=== PATIENT | male | born 1955 | race Caucasian/White ===

== ENCOUNTER → 2018-01-01 | Outpatient (CLI) | payer BC ==
[2018-01-01 11:54] LABS: HCT 41.2 % (39.0-53.0); HGB 13.4 gm/dL (13.0-17.5); MCH 29.7 pg (25.0-35.0); MCHC 32.6 g/dL (31.0-37.0); MCV 91.2 fL (80.0-100.0); Mean Platelet Volume 9.1; Platelet Count 122 k/uL (150-450); RBC 4.52 m/uL (4.30-5.90); RDW 13.7 % (11.5-15.5); WBC 5.3 k/uL (3.8-10.6)
[2018-01-01 12:03] LABS: ALT 40 U/L (21-72); AST 21 U/L (17-59); Albumin 4.1 g/dL (3.5-5.0); Alkaline Phosphatase 51 U/L (38-126); Anion Gap 13 mmol/L; Blood Urea Nitrogen 16 mg/dL (9-20); Calcium 9.2 mg/dL (8.4-10.2); Carbon Dioxide 26 mmol/L (22-30); Chloride 105 mmol/L (98-107); Glucose 106 mg/dL (74-99); Potassium 4.7 mmol/L (3.5-5.1); Sodium 144 mmol/L (137-145); Total Bilirubin 0.4 mg/dL (0.2-1.3); Total Protein 6.1 g/dL (6.3-8.2)
[2018-01-01 12:15] LABS: INR 1.1 (<1.2); Partial Thromboplastin Time 24.1 sec (22.0-30.0); Prothrombin Time 10.8 sec (9.0-12.0)
[2018-01-01 12:24] LABS: Appearance,Urine Clear (Clear); Bilirubin,Urine Negative (Negative); Blood,Urine Negative (Negative); Color,Urine Yellow; Glucose,Urine (UA) Negative (Negative); Ketones,Urine Negative (Negative); Leukocyte Esterase,Urine Negative (Negative); Nitrite,Urine Negative (Negative); PH, Urine 5.5 (5.0-8.0); Protein,Urine Negative (Negative); Specific Gravity,Urine 1.016 (1.001-1.035); Urobilinogen,Urine <2.0 mg/dL (<2.0)
== END | disposition home or self-care (01) ==
LOC: LABPAT 11:22
PROVIDERS: ATTEND Orthopaedic Surgery
DX: Z01.812 Encounter for preprocedural laboratory examination (principal)
CPT/HCPCS: 80053; 81003; 85027; 85610; 85730; 87070

== ENCOUNTER 2018-01-08 05:38 | Inpatient (IN) | payer BC ==
[2018-01-04 15:11] VITALS: BMI 25.9
[~2018-01-08 05:38] MED LIST: ACETAMINOPHEN TAB 500 MG TAB PO ONE; LACTATED RINGERS 1,000 ML IV SCH; LIDOCAINE 1% 20 ML VIAL (10MG/ML) FOR IV START INTRADERMA PRN; MELOXICAM 7.5 MG TAB PO ONE; MORPHINE SULFATE 4 MG/0.8 ML SYRINGE (INJ) IV PRN; ONDANSETRON ODT 4 MG TAB PO ONE; TRANEXAMIC ACID 1,000 MG in SODIUM CHLORIDE 0.9% 50 ML IVPB ONE; ceFAZolin IN SWFI 2 GM/20 ML SYRINGE IVP ONE
[2018-01-08] MEDS ORDERED: ROPIVACAINE 246.25 MG, EPINEPHrine 0.5 MG, KETOROLAC 30 MG, cloNIDine HCL/PF 80 MCG, WA... MISCELLANE ONE ×5 (05:43)
[2018-01-08] MEDS ORDERED: ONDANSETRON 4 MG/2 ML VIAL ONE (06:11)
[2018-01-08] MEDS ORDERED: DEXAMETHASONE SOD PHOS (MDV) 100 MG/10 ML VIAL IV ONE (06:50)
[2018-01-08] MEDS ORDERED: ONDANSETRON 4 MG/2 ML VIAL IVP ONE (06:50)
[2018-01-08] MEDS ORDERED: SCOPOLAMINE 1.5MG/72HR PATCH TRANSDERM ONE (06:50)
[2018-01-08] MEDS ORDERED: DIAZEPAM 5 MG TAB PO PRN ×2 (07:23)
[2018-01-08] MEDS ORDERED: hydrOXYzine PAMOATE 25 MG CAP PO PRN (07:23)
[2018-01-08] MEDS ORDERED: MAGNESIUM HYDROXIDE 2,400 MG/10 ML CUP PO PRN (07:23)
[2018-01-08] MEDS ORDERED: MORPHINE SULFATE 4 MG/0.8 ML SYRINGE (INJ) IVP PRN ×3 (07:23)
[2018-01-08] MEDS ORDERED: ONDANSETRON 4 MG/2 ML VIAL IVP PRN (07:23)
[2018-01-08] MEDS ORDERED: HYDROcodone/APAP 5-325MG 1 EACH TAB PO PRN (07:23)
[2018-01-08] MEDS ORDERED: NALOXONE 0.4 MG/ML 1 ML VIAL IV PRN (07:23)
[2018-01-08] MEDS ORDERED: fentaNYL (PF) 50 MCG/ML 2 ML AMP ONE (07:26)
[2018-01-08] MEDS ORDERED: HEPARIN SODIUM,PORCINE 10,000 UNIT/ML 1 ML VIAL ONE (07:26)
[2018-01-08] MEDS ORDERED: MIDAZOLAM 2 MG/2 ML VIAL ONE (07:26)
[2018-01-08] MEDS ORDERED: SODIUM CHLORIDE 0.9% 100 ML BAG ONE (07:26)
[2018-01-08] MEDS ORDERED: TRANEXAMIC ACID 1,000 MG/10 ML VIAL ONE (07:26)
[2018-01-08] MEDS ORDERED: LACTATED RINGERS 1,000 ML BAG IV ONE (07:26)
[2018-01-08] MEDS ORDERED: ceFAZolin 3,000 MG in SODIUM CHLORIDE 0.9% IRRIGATIO 3,000 ML IRRIGATION ONE (08:03)
[2018-01-08] MEDS ORDERED: LACTATED RINGERS 1,000 ML IV ONE (08:46)
--- NOTE | 2018-01-08 08:58 | P.OP ---
Date of Procedure: 01/08/18 Preoperative Diagnosis: Severe osteoarthritis left hip Postoperative Diagnosis: Severe osteoarthritis left hip Procedure(s) Performed: Left total hip arthroplasty with a direct anterior approach Implants: Mathias and nephew Polarstem size 3 standard [employer]ias [employer]hew R3, 3 hole acetabular shell, 52 mm [employer] reflection 6.5 mm cancellus screw, 20 mm 2 [employer] R3, XLPE 20 acetabular liner [employer]hew Oxinium femoral head 36 m, +0 All components were press-fit. The articulation is Oxinium on polyethylene. Anesthesia: spinal Surgeon: Jose Angel Samaniego Tool Room Gear Machine Operator #1: Kaitlin Sanchez Estimated Blood Loss (ml): 200 (65 mL returned with Cell Saver) Pathology: other (Femoral head) Condition: stable Disposition: PACU Indications for Procedure: After failure of conservative treatment we discussed the surgical and nonsurgical treatment options at length. Patient wishes to proceed with a total hip arthroplasty with a direct anterior approach. Complications specific to this procedure were discussed at length, including but not limited to infection, leg length discrepancy, dislocation, and nerve injury. Patient is aware of all these complications and informed consent was obtained Operative Findings: The operative findings are consistent with severe osteoarthritis of the left hip Description of Procedure: Patient was seen and evaluated in the preoperative area, consent was reviewed, and the surgical site was marked with a skin marker. Patient was then brought to the operating room and given prophylactic antibiotics intravenously. 1 g of Tranexamic acid was also given. A spinal anesthetic was administered by the anesthesia department. The patient was then placed on the [place] table with the bony prominences well-padded. The hip area was then prepped and draped in usual sterile fashion. A universal timeout was then performed, which confirmed the patient's name, surgical site, ALLERGIES, and procedure being performed. Next the incision site was located at 1 cm distal and 1 cm lateral to the anterior superior iliac spine. The skin and subcutaneous tissues were sharply incised. Incision was carefully dissected down to the fascia overlying the tensor fascia rogelio muscle. This fascia was then incised in line with the incision. Next, using blunt finger dissection, the tensor fascia rogelio muscle was dissected off its investing fascia. The muscle was then carefully retracted laterally with a cobra retractor over the lateral neck of the femur. Next, the circumflex vessels were identified and cauterized using the AquaMantis device. The anterior hip capsule was then exposed. The capsule was then opened and an inverted T fashion. Cobra retractors were then placed intracapsularly. The proximal femur was then visualized. The femoral neck was then osteotomized appropriate level above the lesser trochanter. Small amount of traction was placed with the [place] table. A small wedge of bone was then removed from the remaining femoral head. Next, using a corkscrew femoral head was easily removed from the acetabulum. On gross visual inspection, the femoral head had complete loss of articular cartilage in multiple periarticular osteophytes. Attention was then turned to the acetabulum. the acetabulum was exposed and any remaining labrum was excised. Sequential reaming of the acetabulum was performed using fluoroscopic guidance. When the appropriate size was reached, a trial was then placed. The position and fit of the trial was checked with fluoroscopy. The trial was then removed. Then, using fluoroscopic guidance, the final implant was impacted at 20 of anteversion and 40 of abduction, and fully seated in the acetabulum. 2 screws were then placed in the acetabulum. Again fluoroscopy was used to check position of the screws. Next, the liner was then impacted, with a 20 elevated liner located in the anterior superior quadrant. Component locking was confirmed. Attention was then directed to the femur. With the aid of the [place] table, the femur was externally rotated to approximately 130, extended, and abducted under the opposite leg. A side hook was then placed under the proximal femur, and the side hook elevator was used to elevate the proximal femur. Retractors were then placed. A capsular release was performed, as well as a release of the conjoined tendon, which afforded excellent visualization of the proximal femur. Next, a box osteotome was used to lateralize the proximal femur. A insole tack puller hand was then used to locate the femoral canal. Sequential broaching was then performed with appropriate size which afforded excellent fixation in the proximal femur. A trial was then placed with appropriate head and neck, and the hip was gently reduced with the aid of the [place] table. Fluoroscopy was then used to check position of the components, as well as to ensure equal leg lengths. The hip was then gently dislocated and the trials were then removed. Final implants were then impacted and the hip was again reduced. Final fluoroscopic x-rays confirmed that the components were in anatomic position, as well as equal leg lengths. The hip was also taken through range of motion, and found to be stable. The hip was then copiously irrigated with antibiotic solution with pulsatile lavage. The hip was then irrigated with Irrisept solution. The soft tissues were then injected with a ropivacaine solution, which consisted of 246.25 mg of ropivacaine, 0.5 mg of epinephrine, 30 mg of Toradol, 80 g of clonidine, and 48.45 mL of sterile water, for a total of 100 mL of fluid injected. A second dose of 1 g of Tranexamic acid was also given. the fascia was then closed with 2-0 strata fix suture. The subcutaneous tissue was closed with 3-0 Vicryl. The subcuticular tissue was closed with 3-0 strata fix suture. The skin was then closed with Dermabond glue and a sterile silver dressing. The patient was then transferred to the recovery room in stable condition. The membership assistant ROSHAN Tse was required due to the complexity of surgery, and the need for skilled surgical dental assistant for positioning, draping, exposure, retraction, and closure of the wound.
--- NOTE | 2018-01-08 09:07 | FL ---
EXAMINATION TYPE: FL guidance operating room, XR Hip Limited LT DATE OF EXAM: 01/08/2018 CLINICAL HISTORY: Left hip replacement surgery. TECHNIQUE: Fluoroscopy. Limited intraoperative views left hip. COMPARISON: None. FINDINGS: Fluoroscopic guidance was provided during left hip replacement procedure performed by Dr. Samaniego. A total of 33 seconds of fluoroscopic time was utilized during the procedure and 2 spot in traoperative images are acquired. Intraoperative images obtained show metallic hip prosthesis left hip satisfactory in position on fron yajaira projection. Metallic hardware right hip is partially imaged. IMPRESSION: As Above.
--- NOTE | 2018-01-08 09:33 | XR ---
EXAMINATION TYPE: XR Hip Limited LT DATE OF EXAM: 01/08/2018 CLINICAL HISTORY: Left hip pain and osteoarthritis. TECHNIQUE: Single AP portable view of left hip is obtained immediately postoperatively. COMPARISON: None. FINDINGS: Metallic hardware from total left hip arthroplasty is seen and appears satisfactory in alig nment and position. There is evidence of recent surgery with subcutaneous gas noted laterally. IMPRESSION: Metallic hardware from left hip arthroplasty is satisfactory in position.
[2018-01-08] MEDS: SODIUM CHLORIDE 0.9% 1,000 ML IV SCH (09:44)
[2018-01-08] MEDS: HYDROcodone/APAP 5-325MG 1 EACH TAB PO PRN (10:52)
--- NOTE | 2018-01-08 13:30 | P.CONS ---
History of Present Illness - Reason for Consult Consult date: 01/08/18 Medical management - Chief Complaint Osteoarthritis of the left hip - History of Present Illness This is a 62-year-old gentleman with past medical history noted below significant for severe osteoarthritis of the left hip was admitted to the hospital for elective total left hip arthroplasty. Patient is postoperative day #0 status post total hip arthroplasty. Patient is doing well today. He does not have any complaints. I was asked to see him for medical management. Review of Systems Review of system: 14 points review of systems were obtained and were negative except to what were mentioned in the HPI. Past Medical History Past Medical History: Coronary Artery Disease (CAD), Chest Pain / Angina, Hyperlipidemia, Hypertension, Myocardial Infarction (MO), Osteoarthritis (OA) Additional Past Medical History / Comment(s): SILENT MO Last Myocardial Infarction Date:: unknown History of Any Multi-Drug Resistant Organisms: None Reported Past Surgical History: Appendectomy, Coronary Bypass/CABG, Joint Replacement, Pacemaker Additional Past Surgical History / Comment(s): right hip replaced 01/28 ; CABG X 2011; colonoscopy; Pacemaker (08/19/13) Past Anesthesia/Blood Transfusion Reactions: Postoperative Nausea & Vomiting ( PONV) Additional Past Anesthesia/Blood Transfusion Reaction / Comm: ADOPTED, FAMILY HX UNKNOWN; Type of Cardiac Device: Permanent Pacemaker Device Placement Date:: 08/19/13 Past Psychological History: No Psychological Hx Reported Smoking Status: Never smoker Past Alcohol Use History: None Reported Past Drug Use History: None Reported - Past Family History Father History Unknown: Yes Additional Family Medical History / Comment(s): adopted Mother History Unknown: Yes Additional Family Medical History / Comment(s): adopted Medications and Allergies Home Medications Medication Instructions Recorded Confirmed Type Atorvastatin Calcium [Lipitor] 80 mg PO QAM 01/15/14 01/08/18 History Lisinopril [Zestril] 2.5 mg PO HS 01/15/14 01/08/18 History Apixaban [Eliquis] 5 mg PO BID 11/02/15 01/08/18 History Ezetimibe [Zetia] 10 mg PO QAM 11/02/15 01/08/18 History Ubiquinol 100 mg PO QAM 11/02/15 01/08/18 History Vits A,C,E/Lutein/Minerals 1 tab PO QAM 11/02/15 01/08/18 History [Ocuvite with Lutein Tablet] Chloé C 1,000 mg PO DAILY 01/04/18 01/08/18 History Metoprolol Tartrate [Lopressor] 25 mg PO BID 01/04/18 01/08/18 History Allergies Allergy/AdvReac Type Severity Reaction Status Date / Time No Known Allergies Allergy Verified 01/08/18 09:31 Physical Exam Vitals: Vital Signs Temp Pulse Pulse Resp BP BP Pulse Ox 01/08/18 12:00 52 L 14 129/72 99 01/08/18 11:45 53 L 14 127/69 94 L 01/08/18 11:30 50 L 14 123/66 93 L 01/08/18 11:15 60 14 123/68 96 01/08/18 11:00 51 L 14 120/64 97 01/08/18 10:45 57 L 14 113/67 98 01/08/18 10:30 59 L 14 123/70 98 01/08/18 10:15 57 L 14 116/63 97 01/08/18 10:00 97.8 F 52 L 14 107/55 96 01/08/18 09:50 49 L 16 117/60 97 01/08/18 09:36 57 L 16 129/65 97 01/08/18 09:21 49 L 16 122/60 01/08/18 09:06 98.7 F 53 L 16 126/68 93 L 01/08/18 06:24 97.8 F 58 L 16 124/77 97 Intake and Output 01/07/18 01/08/18 01/08/18 22:59 06:59 14:59 Intake Total 200 1001 Output Total 200 Balance 200 801 Intake: IV 200 1001 Output: Estimated Blood Loss 200 Other: Weight 82.1 kg General: The patient is awake and alert, in no distress Eye: there is normal conjunctiva bilaterally. Neck: The neck is supple, there is no JVD. Cardiovascular: Normal S1-S2, no S3-S4, no murmurs. Respiratory: Lungs clear to auscultation bilaterally Gastrointestinal: Abdomen is soft, nontender Musculoskeletal: There is no pedal edema. Neurological:. Speech is normal. Skin: Skin is warm and dry Assessment and Plan Assessment: 1. Postoperative day #0 status post total left hip arthroplasty. Orthopedic following closely. Continue postoperative management. 2. 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 Continue home dose of Eliquis 5 mg twice a day 3. Physical debility, PT/OT 4. Coronary artery disease with history of CABG, continue optimal medical management as directed by his cardiology 5. History of complete heart block status post pacemaker implantation Today, I reviewed her medication list and lab work results. Continue current regimen. Thank you very much for the consultation. I will continue to follow up on the patient closely.
[2018-01-08 15:36] VITALS: RESP 16
[2018-01-08] MEDS: ceFAZolin IN SWFI 2 GM/20 ML SYRINGE IVP SCH (15:58)
[2018-01-08] MEDS: APIXABAN 5 MG TAB PO SCH (20:16)
[2018-01-08] MEDS ORDERED: SENNOSIDES-DOCUSATE SODIUM 1 EACH TAB PO SCH (21:00)
[2018-01-08] MEDS ORDERED: LISINOPRIL 2.5 MG TAB PO SCH (21:00)
[2018-01-09] MEDS: HYDROcodone/APAP 5-325MG 1 EACH TAB PO PRN ×2 (00:36→08:47)
[2018-01-09] MEDS: ceFAZolin IN SWFI 2 GM/20 ML SYRINGE IVP SCH (00:37)
[2018-01-09] MEDS: METOPROLOL TARTRATE 25 MG TAB PO SCH ×2 (05:32→08:48)
[2018-01-09] MEDS: SODIUM CHLORIDE 0.9% 1,000 ML IV SCH (05:36)
[2018-01-09 07:42] LABS: Basophils % (A) 0 %; Eosinophils % (A) 0 %; HCT 33.6 % (39.0-53.0); HGB 11.1 gm/dL (13.0-17.5); Lymphocytes # (A) 1.1 k/uL (1.0-4.8); Lymphocytes % (A) 18 %; MCH 29.9 pg (25.0-35.0); MCHC 33.2 g/dL (31.0-37.0); Monocytes # (A) 0.4 k/uL (0-1.0); Monocytes % (A) 6 %; Neutrophils # (A) 4.5 k/uL (1.3-7.7); Neutrophils % (A) 75 %; Platelet Count 104 k/uL (150-450); RBC 3.73 m/uL (4.30-5.90); RDW 13.8 % (11.5-15.5); WBC 6.1 k/uL (3.8-10.6)
[2018-01-09 07:45] VITALS: BP 134/92; PULSE 67; TEMP 98.4
[2018-01-09 07:53] LABS: ALT 25 U/L (21-72); AST 19 U/L (17-59); Albumin 2.8 g/dL (3.5-5.0); Alkaline Phosphatase 35 U/L (38-126); Anion Gap 8 mmol/L; Blood Urea Nitrogen 17 mg/dL (9-20); Calcium 8.3 mg/dL (8.4-10.2); Carbon Dioxide 27 mmol/L (22-30); Chloride 104 mmol/L (98-107); Glucose 91 mg/dL (74-99); Potassium 4.2 mmol/L (3.5-5.1); Sodium 139 mmol/L (137-145); Total Bilirubin 0.3 mg/dL (0.2-1.3); Total Protein 4.5 g/dL (6.3-8.2)
--- NOTE | 2018-01-09 08:20 | P.DS ---
Providers Date of admission: 01/08/18 05:38 Expected date of discharge: 01/09/18 Attending physician: Jose Angel Samaniego Consults: 01/08/18 07:23 Consult Physician Routine Consulting Provider: Martha Cantu Consult Reason/Comments: medical management and anticoagulation Do you want consulting provider notified?: Yes 01/08/18 09:44 Consult Physician Routine Consulting Provider: Alex Spangler Consult Reason/Comments: medical management and anticoagulation Do you want consulting provider notified?: Yes Primary care physician: Martha Cantu - Discharge Diagnosis(es) (1) Primary osteoarthritis of left hip Current Visit: Yes Status: Acute (2) S/P total hip arthroplasty Current Visit: Yes Status: Acute Hospital Course: This is a 62-year-old male with known history of degenerative arthritis of the left hip. The patient presents for evaluation. After discussion and consideration patient elects to proceed with total hip arthroplasty. The patient is seen preoperatively by Dr. Samaniego and medically cleared for surgery by their primary care physician. Patient is admitted to [facility] on 01/08/2018 for total hip arthroplasty. The procedures performed without complication or sequelae. The patient is doing well postoperatively. Labs and vital signs are stable on day of discharge. On day of discharge patient's hip incision is healing well. There is minimal erythema. There is no drainage noted at this time. There is minimal soft tissue swelling to the hip and thigh. Patient has full foot and ankle motion without difficulty or pain. Neurovascular status to the left lower extremity is intact. Patient is discharged home in good condition. Please see med rec for accurate list of home medications. Plan - Discharge Summary Discharge Rx Participant: Yes New Discharge Prescriptions: New HYDROcodone/APAP 5-325MG [[place] 5-325] 1 - 2 tab PO Q4-6H PRN #90 tab PRN Reason: Pain Sennosides [Senokot] 1 tab PO BID #60 tablet No Action Atorvastatin Calcium [Lipitor] 80 mg PO QAM Lisinopril [Zestril] 2.5 mg PO HS Vits A,C,E/Lutein/Minerals [Ocuvite with Lutein Tablet] 1 tab PO QAM Ubiquinol 100 mg PO QAM Ezetimibe [Zetia] 10 mg PO QAM Apixaban [Eliquis] 5 mg PO BID Metoprolol Tartrate [Lopressor] 25 mg PO BID Chloé C 1,000 mg PO DAILY Discharge Medication List Atorvastatin Calcium [Lipitor] 80 mg PO QAM 01/15/14 [History] Lisinopril [Zestril] 2.5 mg PO HS 01/15/14 [History] Apixaban [Eliquis] 5 mg PO BID 11/02/15 [History] Ezetimibe [Zetia] 10 mg PO QAM 11/02/15 [History] Ubiquinol 100 mg PO QAM 11/02/15 [History] Vits A,C,E/Lutein/Minerals [Ocuvite with Lutein Tablet] 1 tab PO QAM 11/02/15 [ History] Chloé C 1,000 mg PO DAILY 01/04/18 [History] Metoprolol Tartrate [Lopressor] 25 mg PO BID 01/04/18 [History] HYDROcodone/APAP 5-325MG [[place] 5-325] 1 - 2 tab PO Q4-6H PRN #90 tab 01/09/18 [ Rx] Sennosides [Senokot] 1 tab PO BID #60 tablet 01/09/18 [Rx] Follow up Appointment(s)/Referral(s): Jose Angel Samaniego DO [Doctor of Osteopathic Medicine] - 2 Weeks Activity/Diet/Wound Care/Special Instructions: Weightbearing as tolerated with walker Leave dressing intact. Dressing may be removed by home care nurse in 10 days. May shower with dressing on. Follow-up with [facility] in 2 weeks, please call with any questions or concerns [phone] Discharge Disposition: HOME WITH HOME HEALTH SERVICES
[2018-01-09] MEDS: APIXABAN 5 MG TAB PO SCH (08:49)
[2018-01-09] MEDS ORDERED: APIXABAN 2.5 MG TABLET PO SCH (09:00)
[2018-01-09] MEDS ORDERED: ATORVASTATIN 80 MG TAB PO SCH (09:00)
[2018-01-09] MEDS ORDERED: EZETIMIBE 10 MG TAB PO SCH (09:00)
== END 2018-01-09 12:16 | disposition home health service (06) | DRG 470 ==
LOC: 2ORMAIN 05:38 → 3SUR 09:06
PROVIDERS: ADMIT Orthopaedic Surgery; ATTEND Orthopaedic Surgery
PROC: 30233N0 Transfusion of Autologous Red Blood Cells into Peripheral Vein, Percutaneous Approach (ICD-10-PCS; 2018-01-08)
PROC: 0SRB06A Replacement of Left Hip Joint with Oxidized Zirconium on Polyethylene Synthetic Substitute, Uncemented, Open Approach (ICD-10-PCS; principal; 2018-01-08 07:30)
DX: M16.12 Unilateral primary osteoarthritis, left hip (principal); Z96.641 Presence of right artificial hip joint; E78.5 Hyperlipidemia, unspecified; M25.752 Osteophyte, left hip; I25.119 Atherosclerotic heart disease of native coronary artery with unspecified angina pectoris; I10 Essential (primary) hypertension; Z79.899 Other long term (current) drug therapy; Z79.01 Long term (current) use of anticoagulants; Z91.040 Latex allergy status; I25.2 Old myocardial infarction; Z95.0 Presence of cardiac pacemaker; Z95.1 Presence of aortocoronary bypass graft; Z90.49 Acquired absence of other specified parts of digestive tract
CPT/HCPCS: 36415; 73501; 80053; 85025; 86850; 86891; 86900; 86901; 88300

== ENCOUNTER → 2018-08-17 | Outpatient (CLI) | payer BC | END | disposition home or self-care (01) | LOC: LABWHC1 11:21 | PROVIDERS: ATTEND Internal Medicine Cardiovascular Disease | DX: I25.10 Atherosclerotic heart disease of native coronary artery without angina pectoris (principal) | CPT/HCPCS: 36415; 83704 ==

== ENCOUNTER → 2020-06-14 | Day surgery (SDC) | payer MEDICARE ==
[2020-06-10 13:42] VITALS: BMI 27.9
[~2020-06-14] MED LIST changes: -ACETAMINOPHEN TAB 500 MG TAB PO ONE; +IOPAMIDOL-370 50ML BTL INJ ONE; -LACTATED RINGERS 1,000 ML IV SCH; -LIDOCAINE 1% 20 ML VIAL (10MG/ML) FOR IV START INTRADERMA PRN; -MELOXICAM 7.5 MG TAB PO ONE; -MORPHINE SULFATE 4 MG/0.8 ML SYRINGE (INJ) IV PRN; -ONDANSETRON ODT 4 MG TAB PO ONE; +SODIUM CHLORIDE 0.9% 1,000 ML IV SCH; -TRANEXAMIC ACID 1,000 MG in SODIUM CHLORIDE 0.9% 50 ML IVPB ONE; -ceFAZolin IN SWFI 2 GM/20 ML SYRINGE IVP ONE
[2020-06-14 06:55] LABS: Basophils % (A) 0 %; Eosinophils # (A) 0.1 k/uL (0-0.7); Eosinophils % (A) 1 %; HCT 43.3 % (39.0-53.0); HGB 14.8 gm/dL (13.0-17.5); Lymphocytes # (A) 1.8 k/uL (1.0-4.8); Lymphocytes % (A) 26 %; MCH 30.4 pg (25.0-35.0); MCHC 34.2 g/dL (31.0-37.0); MCV 88.9 fL (80.0-100.0); Mean Platelet Volume 8.6; Monocytes # (A) 0.4 k/uL (0-1.0); Monocytes % (A) 6 %; Neutrophils # (A) 4.5 k/uL (1.3-7.7); Neutrophils % (A) 65 %; Platelet Count 142 k/uL (150-450); RBC 4.86 m/uL (4.30-5.90); RDW 14.1 % (11.5-15.5); WBC 6.9 k/uL (3.8-10.6)
[2020-06-14 06:59] VITALS: BP 144/93; PULSE 55; RESP 18; TEMP 98.1
[2020-06-14 07:19] LABS: ALT 35 U/L (4-49); AST 31 U/L (17-59); African American GFR (CKD) >90 (>60 ml/min/1.73 sqM); Albumin 4.3 g/dL (3.5-5.0); Alkaline Phosphatase 55 U/L (38-126); Anion Gap 8 mmol/L; Blood Urea Nitrogen 19 mg/dL (9-20); Calcium 9.1 mg/dL (8.4-10.2); Carbon Dioxide 29 mmol/L (22-30); Chloride 105 mmol/L (98-107); Cholesterol 111 mg/dL (<200); Glucose 104 mg/dL (74-99); HDL Cholesterol 36 mg/dL (40-60); LDL Cholesterol,Calculated 55 mg/dL (0-99); Non-African American GFR(CKD) 84 (>60 ml/min/1.73 sqM); Potassium 4.5 mmol/L (3.5-5.1); Sodium 142 mmol/L (137-145); Total Bilirubin 0.6 mg/dL (0.2-1.3); Total Protein 6.4 g/dL (6.3-8.2); Triglycerides 101 mg/dL (<150)
--- NOTE | 2020-07-05 07:59 | P.PCN ---
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
== END ==
LOC: CATHEP 06:02
PROVIDERS: ATTEND Internal Medicine Clinical Cardiac Electrophysiology
DX: T82.190A Other mechanical complication of cardiac electrode, initial encounter (principal); I25.10 Atherosclerotic heart disease of native coronary artery without angina pectoris; I10 Essential (primary) hypertension; E78.5 Hyperlipidemia, unspecified; I44.2 Atrioventricular block, complete; I47.1 Supraventricular tachycardia; I48.0 Paroxysmal atrial fibrillation; Z79.01 Long term (current) use of anticoagulants; Z79.899 Other long term (current) drug therapy
CPT/HCPCS: 36005; 75820; 76000; 80061; 80053; 84443; 85025; Q9967

== ENCOUNTER → 2020-07-27 | Outpatient (CLI) | payer MEDICARE ==
[2020-07-27 14:34] LABS: HCT 41.2 % (39.0-53.0); MCH 30.7 pg (25.0-35.0); MCHC 33.9 g/dL (31.0-37.0); MCV 90.6 fL (80.0-100.0); Mean Platelet Volume 8.4; Platelet Count 136 k/uL (150-450); RBC 4.55 m/uL (4.30-5.90); RDW 13.6 % (11.5-15.5); WBC 5.7 k/uL (3.8-10.6)
[2020-07-27 14:49] LABS: African American GFR (CKD) >90 (>60 ml/min/1.73 sqM); Anion Gap 5 mmol/L; Blood Urea Nitrogen 20 mg/dL (9-20); Carbon Dioxide 27 mmol/L (22-30); Chloride 106 mmol/L (98-107); Magnesium 2.3 mg/dL (1.6-2.3); Non-African American GFR(CKD) 80 (>60 ml/min/1.73 sqM); Potassium 4.4 mmol/L (3.5-5.1); Sodium 138 mmol/L (137-145)
== END | disposition home or self-care (01) ==
LOC: LABPAT 12:48
PROVIDERS: ATTEND Internal Medicine Clinical Cardiac Electrophysiology
DX: I44.2 Atrioventricular block, complete (principal); I25.10 Atherosclerotic heart disease of native coronary artery without angina pectoris; Z01.812 Encounter for preprocedural laboratory examination
CPT/HCPCS: 36415; 80051; 82565; 83735; 84520; 85027

== ENCOUNTER 2020-08-05 06:03 | Day surgery (SDC) | payer MEDICARE ==
[2020-08-03 10:44] VITALS: BMI 29.1
[~2020-08-05 06:03] MED LIST changes: -IOPAMIDOL-370 50ML BTL INJ ONE; +ceFAZolin 1,000 MG in SODIUM CHLORIDE 0.9% IRRIGATIO 250 ML IRRIGATION ONE
[2020-08-05] MEDS ORDERED: SODIUM CHLORIDE 0.9% 1,000 ML IV ONE (06:15)
[2020-08-05 06:28] VITALS: RESP 16; TEMP 97.8
[2020-08-05] MEDS ORDERED: fentaNYL (PF) 50 MCG/ML 2 ML AMP ONE (07:20)
[2020-08-05] MEDS ORDERED: MIDAZOLAM 2 MG/2 ML VIAL ONE (07:20)
[2020-08-05] MEDS ORDERED: PROPOFOL 10 MG/ML 20 ML VIAL IV ONE (07:20)
[2020-08-05] MEDS ORDERED: LIDOCAINE 1% INJ 10MG/ML (20 ML MDV) ONE ×2 (07:39)
[2020-08-05] MEDS ORDERED: LIDOCAINE 1% INJ 10MG/ML (20 ML MDV) SQ ONE (08:03)
[2020-08-05] MEDS ORDERED: IOPAMIDOL-250 50ML BTL IV ONE (08:54)
--- NOTE | 2020-08-05 11:05 | PCN ---
PROCEDURE NOTE DATE OF SERVICE: This is a 65-year-old male patient who has bradycardia with complete heart block and 100% RV pacing. He was brought in for an upgrade to a biventricular pacemaker. He had a venogram of the left subclavian previously and he has mild stenosis in the subclavian vein. Patient was brought to the EP lab in a fasting state. Written informed consent was obtained prior to the procedure. The left shoulder area was prepped and draped as per protocol. 1% lidocaine was used for local anesthesia. A 4 cm incision was made directly over the previous surgical site and carried down to the level of the generator. The generator was explanted, but RV pacing was continued via the chronic RV lead. Access was obtained in the left axillary vein and the wire was placed in the central venous circulation. The 9.5-Hebrew sheath would not pass through and therefore a venoplasty of the subclavian vein was performed with serial dilators. The long sheath was placed in the coronary sinus access. Accessing the coronary sinus was difficult, but we were successfully able to cannulate the coronary sinus. Following that a venogram was performed. The patient had anteroseptal veins very diminutive, anterolateral and lateral veins which were tortuous and large posterolateral vein. Initially, the lateral and anterolateral veins were targeted but because of the tortuosity and the definitive size, even the angioplasty wire would not be stable within the veins. The middle cardiac vein was successfully accessed quite easily. A venogram was performed to delineate the tributaries feeding this vein. A [employer] agile test lead was implanted and multiple tributaries were attempted. The lead was successfully placed at multiple locations within this vein but at all locations, there was diaphragmatic stimulation that even 5 V of pacing and there was noncapture or intermittent capture at 6-7 V. Therefore, after attempting positioning and multiple tributaries and discovering diaphragmatic stimulation as well as very high thresholds, the lead was finally removed. HIS bundle pacing was attempted. However, because of the curvature of the sheath, the atrial lead would pullback and therefore this was aborted to avoid any dislodgement of the atrial lead. The atrial lead was then interrogated and was functioning normally with P-waves were 3.6 mV. Pacing impedance of 411 ohms, pacing threshold 0.5 V at 0.5 milliseconds. Fluoroscopic stability was excellent. The chronic RV lead was in and had a pacing threshold 0.9 V at 0.5 milliseconds pacing impedance of 460 ohms. The patient complete heart block. The sheath was removed and a suture was applied around the sheath to avoid backbleeding and the pocket was irrigated with antibiotic solution and the old generator and leads were placed in subfascial pocket and the wound was closed in 3 layers and dressed per protocol. RESULTS: Successful implantation of an LV lead, [employer] within the posterolateral vein at multiple locations. However, this lead was removed on account of a very high thresholds above 6 V at 0.5 milliseconds along with diaphragmatic stimulation virtually all along this vein as well as multiple tributaries with feeding this vein. RECOMMENDATION: Thoracoscopic epicardial LV lead placement recommended. This was discussed with the patient's . VALENCIA / DALILA: [id number] /
[2020-08-05] MEDS ORDERED: ACETAMINOPHEN IV (For NPO) 1,000 MG in EMPTY BAG 1 BAG IVPB ONE (11:07)
[2020-08-05] MEDS ORDERED: ACETAMINOPHEN TAB 325 MG TAB PO PRN (11:07)
[2020-08-05 18:02] VITALS: BP 148/71; PULSE 68
== END 2020-08-05 15:30 | disposition home or self-care (01) ==
LOC: CATHEP 06:03
PROVIDERS: ATTEND Internal Medicine Clinical Cardiac Electrophysiology
DX: I25.2 Old myocardial infarction (principal); I44.2 Atrioventricular block, complete; I42.9 Cardiomyopathy, unspecified; R00.1 Bradycardia, unspecified; I47.1 Supraventricular tachycardia; I25.10 Atherosclerotic heart disease of native coronary artery without angina pectoris; I48.0 Paroxysmal atrial fibrillation; I10 Essential (primary) hypertension; E78.2 Mixed hyperlipidemia; Z95.1 Presence of aortocoronary bypass graft; Z79.01 Long term (current) use of anticoagulants; Z79.899 Other long term (current) drug therapy; Z96.641 Presence of right artificial hip joint
CPT/HCPCS: 33224; C1769 ×5; C1892; C1887; J2250; J0690 ×2; J2001; J3010; J2704; Q9966

== ENCOUNTER → 2022-03-30 | Outpatient (CLI) | payer MEDICARE ==
[2022-03-30 18:24] LABS: HGB 13.6 g/dL (13.0-17.0); MCH 28.8 pg (27.0-32.0); MCHC 31.6 g/dL (32.0-37.0); MCV 90.9 fL (80.0-97.0); Mean Platelet Volume 12.3 fL (9.5-12.2); NRBC Per 100 WBC 0 /100 WBCS (0.0-0.0); Platelet Count 133 X 10*3/uL (140-440); RBC 4.73 X 10*6/uL (4.40-5.60); RDW 13.9 % (11.5-14.5); WBC 6.74 X 10*3/uL (4.50-10.00)
[2022-03-30 18:53] LABS: ALT 27 U/L (10-49); AST 24 U/L (14-35); African American GFR (CKD) 88.2 (60.0-200.0); BUN/Creat Ratio 16.04 Ratio (12.00-20.00); Blood Urea Nitrogen 16.2 mg/dL (9.0-27.0); Calcium 9.6 mg/dL (8.7-10.3); Carbon Dioxide 25.6 mmol/L (20.0-27.5); Chloride 104 mmol/L (96-109); Chol/HDL Ratio 3.64 Ratio; Glucose 107 mg/dL (70-110); LDL Cholesterol,Calculated 51.3 mg/dL (0.0-131.0); Non-African American GFR(CKD) 76.1 (60.0-200.0); Sodium 139 mmol/L (135-145)
== END | disposition home or self-care (01) ==
LOC: LABWHC1 12:17
PROVIDERS: ATTEND Internal Medicine Cardiovascular Disease
DX: E78.2 Mixed hyperlipidemia (principal)
CPT/HCPCS: 36415; 80048; 80061; 84450; 84460; 85027

== ENCOUNTER → 2023-03-23 | Outpatient (CLI) | payer MEDICARE ==
[2023-03-23 20:50] LABS: ALT 31 U/L (10-49); AST 21 U/L (14-35); Chol/HDL Ratio 3.67 Ratio; LDL Cholesterol,Calculated 42.1 mg/dL (0.0-131.0)
== END | disposition home or self-care (01) ==
LOC: LABWHC1 12:04
PROVIDERS: ATTEND Internal Medicine Cardiovascular Disease
DX: E78.2 Mixed hyperlipidemia (principal)
CPT/HCPCS: 36415; 80061; 84450; 84460

== ENCOUNTER → 2024-04-01 | Outpatient (CLI) | payer MEDICARE ==
[2024-04-01 20:53] LABS: ALT 24 U/L (10-49); AST 21 U/L (14-35); Chol/HDL Ratio 3.94 Ratio; LDL Cholesterol,Calculated 34.8 mg/dL (0.0-131.0)
== END | disposition home or self-care (01) ==
LOC: LABWHC1 14:38
PROVIDERS: ATTEND Internal Medicine Cardiovascular Disease
DX: E78.2 Mixed hyperlipidemia (principal)
CPT/HCPCS: 36415; 80061; 84450; 84460

== ENCOUNTER 2024-04-15 15:59 | Day surgery (SDC) | payer MEDICARE ==
[~2024-04-15 15:59] MED LIST changes: -ceFAZolin 1,000 MG in SODIUM CHLORIDE 0.9% IRRIGATIO 250 ML IRRIGATION ONE
[2024-04-15 16:37] VITALS: BP 143/74; PULSE 70; RESP 16; TEMP 98.5
[2024-04-15] MEDS: IV FLUID CONTINUATION 500 ML IV ONE (18:27)
[2024-04-15] MEDS: IOPAMIDOL-370 100ML BTL IVP ONE ×2 (18:29)
--- NOTE | 2024-04-15 18:52 | P.EPPROC ---
- EP Procedure Note Electrophysiology Procedure Note: Diagnosis Pacemaker dependent, dual-chamber pacemaker 100% RV paced Adams Accent DR 2110, serial #[id number] implanted in August 2013 On the August 10, 2020 there was a reset on account of AMI Right atrial lead, Adams model #1688 TC, 52 cm in length and serial number [id number] implanted in August 2013 RV lead, Adams 1688 TC, 58 cm in length and serial number [id number], implanted 08/19/2013 Atrial pacing threshold 0.75 V at 0.4 ms, P waves 1 mV and pacing impedance 440 ohms RV pacing threshold 1 V at 0.4 ms, no R waves, pacemaker dependent, pacing impedance 450 ohms Cinefluoroscopy of the leads reveals right atrial and right ventricular lead without any fractures or breaks RV lead is in the low RV septum Right atrial lead in the right atrial appendage Left upper extremity venogram reveals a 1 cm occlusion at the subclavian/axillary junction with retrograde filling from collaterals Plan 2D echo and Doppler study to assess LV function Upgrade to a biventricular pacemaker if LV function is reduced at or below 50% Or Dual-chamber pacemaker generator change if LV function is normal
== END 2024-04-15 18:52 | disposition home or self-care (01) ==
LOC: CATHEP 15:59
PROVIDERS: ATTEND Internal Medicine Clinical Cardiac Electrophysiology
DX: Z45.010 Encounter for checking and testing of cardiac pacemaker pulse generator [battery] (principal); Z79.01 Long term (current) use of anticoagulants; Z79.899 Other long term (current) drug therapy
CPT/HCPCS: 36005; 75820; 33228; Q9967

== ENCOUNTER → 2024-05-26 | Outpatient (CLI) | payer MEDICARE ==
[2024-05-26 18:22] LABS: HCT 41.1 % (39.6-50.0); HGB 13.5 g/dL (13.0-17.0); MCHC 32.8 g/dL (32.0-37.0); MCV 88.2 FL (80.0-97.0); Mean Platelet Volume 11.9 FL (9.5-12.2); NRBC Per 100 WBC 0 X 10*3/uL (0.00-0.01); Platelet Count 135 X 10*3/uL (140-440); RBC 4.66 X 10*6/uL (4.40-5.60); RDW 14.3 % (11.5-14.5); WBC 5.54 X 10*3/uL (4.50-10.00)
[2024-05-26 19:18] LABS: Blood Urea Nitrogen 10.5 mg/dL (9.0-27.0); Carbon Dioxide 22.3 mmol/L (21.6-31.8); Chloride 106 mmol/L (96-109); Potassium 4.6 mmol/L (3.5-5.5); Sodium 141 mmol/L (135-145)
== END | disposition home or self-care (01) ==
LOC: LABPAT 13:21
PROVIDERS: ATTEND Internal Medicine Clinical Cardiac Electrophysiology
DX: Z01.818 Encounter for other preprocedural examination
CPT/HCPCS: 36415; 80051; 82565; 84520; 85027

== ENCOUNTER 2024-06-09 08:05 | Day surgery (SDC) | payer MEDICARE ==
[2024-06-02 12:47] VITALS: BMI 28.7
[~2024-06-09 08:05] MED LIST changes: -SODIUM CHLORIDE 0.9% 1,000 ML IV SCH; +VANCOMYCIN 1,350 MG in SODIUM CHLORIDE 0.9% 250 ML IVPB ONE; +VANCOMYCIN IV PER PHARMACY 1 EACH MISC MISCELLANE PRN; +ceFAZolin 1 GM in SODIUM CHLORIDE 0.9% IRRIG BTL 250 ML IRRIGATION PRN
[2024-06-09] MEDS: SODIUM CHLORIDE 0.9% 1,000 ML IV ONE (08:30)
[2024-06-09] MEDS: SODIUM CHLORIDE 0.9% 1,000 ML IV SCH (08:54)
[2024-06-09] MEDS: VANCOMYCIN 1,250 MG in SODIUM CHLORIDE 0.9% 250 ML IVPB ONE (08:58)
[2024-06-09 09:51] LABS: ALT 23 U/L (4-49); AST 21 U/L (17-59); African American GFR (CKD) >90 (>60 ml/min/1.73 sqM); Alkaline Phosphatase 72 U/L (38-126); Anion Gap 2 mmol/L; Blood Urea Nitrogen 17 mg/dL (9-20); Calcium 8.9 mg/dL (8.4-10.2); Carbon Dioxide 28 mmol/L (22-30); Chloride 106 mmol/L (98-107); Glucose 258 mg/dL (74-99); Non-African American GFR(CKD) 88 (>60 ml/min/1.73 sqM); Potassium 4.3 mmol/L (3.5-5.1); Sodium 136 mmol/L (137-145); Total Bilirubin 0.6 mg/dL (0.2-1.3)
[2024-06-09] MEDS ORDERED: GLYCOPYRROLATE 0.2 MG/ML 2 ML VIAL ONE (16:59)
[2024-06-09] MEDS ORDERED: SUCCINYLCHOLINE CHLORIDE 200 MG/10 ML VIAL IV ONE (16:59)
[2024-06-09] MEDS ORDERED: MIDAZOLAM 2 MG/2 ML VIAL ONE (16:59)
[2024-06-09] MEDS ORDERED: LIDOCAINE 1% INJ 10MG/ML (20 ML MDV) ONE (16:59)
[2024-06-09] MEDS ORDERED: PROPOFOL 10 MG/ML 20 ML VIAL IV ONE (16:59)
[2024-06-09] MEDS ORDERED: PHENYLEPHRINE-0.9% NACL SYG 1,000 MCG/10 ML SYRINGE ONE (16:59)
[2024-06-09] MEDS ORDERED: NEOSTIGMINE 1 MG/ML 10 ML VIAL ONE (16:59)
[2024-06-09] MEDS ORDERED: ROCURONIUM 10 MG/ML (5 ML VIAL) IV ONE (16:59)
[2024-06-09] MEDS ORDERED: fentaNYL (PF) 50 MCG/ML 2 ML AMP ONE (16:59)
[2024-06-09] MEDS: HEPARIN SODIUM,PORCINE (1 ML) 2,500 UNIT in SODIUM CHLORIDE 0.9% 250 ML IRRIGATION ONE (17:08)
[2024-06-09] MEDS: IOPAMIDOL-370 100ML BTL IVP ONE (17:20)
[2024-06-09] MEDS: ROPIVACAINE 5 MG/ML 30 ML VIAL MISCELLANE ONE (18:06)
[2024-06-09] MEDS: LIDOCAINE 1% INJ 10MG/ML (20 ML MDV) SQ ONE (18:06)
--- NOTE | 2024-06-09 20:30 | P.EPPROC ---
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 Written informed consent was obtained prior to the procedure. IV vancomycin administered. IV Kefzol administered. General anesthesia provided. Backup DO pacing was performed from the old chronic generator First right-sided venous access was obtained and a sheath was placed LV lead placement was attempted from the right side Multiple sheaths were used but the coronary sinus could not be accessed for the next 1 hour Therefore left bundle pacing was performed A left bundle lead was successfully in expeditiously placed with a QRS width of 135 ms and rapid activation and V6 of 60 ms in the unipolar mode Excellent pacing threshold of 0.8 V at 0.4 ms with a pacing impedance of 580 ohms in final parameters This lead was secured with 2 leads sleeves and then tunneled across to the left side using the tunneling tool The left-sided pocket was made. A new subfascial pocket was made more medially to accommodate the Medtronic 3830 pacing lead Antibiotic pouch was replaced on both sides The old generator dual-chamber pacemaker was explanted The new biventricular pacemaker generator was implanted and secured more medially in the new subfascial pocket The wounds were closed in 3 layers and dressed per protocol The biventricular pacemaker is programmed to DDD 60 bpm Atrial pacing threshold 0.7 V at 0.4 ms, P waves 1.2 mV and pacing impedance of 390 ohms RV pacing threshold 1.4 V at 0.4 ms pacing pins of 430 ohms. Pacemaker dependent Left bundle pacing 0.5 V at 0.4 ms in the unipolar mode pacing impedance of 580 ohms QR pattern, paced width of 135 ms. Stimulus-V6 of 60 ms
[2024-06-09 21:25] LABS: Glucose,Whole Blood 171 mg/dL (70-110)
[2024-06-09] MEDS: LACTATED RINGERS 1,000 ML IV SCH (21:42)
[2024-06-09] MEDS: ACETAMINOPHEN TAB 325 MG TAB PO PRN (22:45)
[2024-06-09] MEDS: ONDANSETRON 4 MG/2 ML VIAL IVP STA (22:45)
[2024-06-10] MEDS ORDERED: HYDROmorphone 0.5 MG/0.5 ML SYRINGE IVP PRN (07:00)
[2024-06-10 07:27] VITALS: BP 138/71; PULSE 66; RESP 17; TEMP 97.2
--- NOTE | 2024-06-10 08:46 | XR ---
EXAMINATION TYPE: XR chest 2V DATE OF EXAM: 06/10/2024 COMPARISON: 08/20/2013 INDICATION: Lead placement check TECHNIQUE: Frontal and lateral views of the chest are obtained. FINDINGS: The heart size is a prominent. The pulmonary vasculature is normal. The lungs are clear. 3-lead pacemaker overlies left chest. Leads appear to have normal orientation. One lead appears to be right subclavian origin. IMPRESSION: 1. No acute pulmonary process. [facility], , 06/10/2024 8:43 AM
[2024-06-10] MEDS: METOPROLOL SUCCINATE (ER) 50 MG TAB.ER.24H PO SCH (09:02)
[2024-06-10] MEDS: EZETIMIBE 10 MG TAB PO SCH (09:02)
[2024-06-10] MEDS: ATORVASTATIN 80 MG TAB PO SCH (09:02)
--- NOTE | 2024-06-10 11:35 | P.EPPROC ---
- EP Procedure Note Electrophysiology Procedure Note: Patient is doing well. 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 right subclavian vein Implantation of left bundle pacing lead via the right subclavian vein This was then tunneled across to the left side A new subfascial pocket was made more medially on the left side so that the lead could reach the generator The old dual-chamber pacemaker generator was explanted The new biventricular pacemaker generator was implanted Both sides received an antibiotic pouch He was treated with IV vancomycin prior to entering the lab and then intrao perative antibiotics His pacemaker interrogation is within normal limits Plan Resume home medications Start Eliquis this evening Follow-up in the device clinic and with Dr. Galicia within a week
--- NOTE | 2024-06-10 11:47 | P.DS ---
Providers Attending physician: Albert Maradiaga Primary care physician: [facility] Course: Patient is doing well. 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 right subclavian vein Implantation of left bundle pacing lead via the right subclavian vein This was then tunneled across to the left side A new subfascial pocket was made more medially on the left side so that the lead could reach the generator The old dual-chamber pacemaker generator was explanted The new biventricular pacemaker generator was implanted Both sides received an antibiotic pouch He was treated with IV vancomycin prior to entering the lab and then intraoperative antibiotics His pacemaker interrogation is within normal limits Plan Resume home medications Start Eliquis this evening Follow-up in the device clinic and with Dr. Galicia within a week Plan - Discharge Summary Discharge Rx Participant: No New Discharge Prescriptions: No Action Atorvastatin Calcium [Lipitor] 80 mg PO QAM lisinopriL [Zestril] 2.5 mg PO HS Vits A,C,E/Lutein/Minerals [Ocuvite with Lutein Tablet] 1 tab PO QAM Ubiquinol [Co-Veratrol] 100 mg PO QAM Ezetimibe [Zetia] 10 mg PO QAM Apixaban [Eliquis] 5 mg PO BID Metoprolol Succinate [Toprol XL] 50 mg PO DAILY Ascorbic Acid [Vitamin C] 1,000 mg PO DAILY Discharge Medication List Atorvastatin Calcium [Lipitor] 80 mg PO QAM 01/15/14 [History] lisinopriL [Zestril] 2.5 mg PO HS 01/15/14 [History] Apixaban [Eliquis] 5 mg PO BID 11/02/15 [History] Ezetimibe [Zetia] 10 mg PO QAM 11/02/15 [History] Ubiquinol [Co-Veratrol] 100 mg PO QAM 11/02/15 [History] Vits A,C,E/Lutein/Minerals [Ocuvite with Lutein Tablet] 1 tab PO QAM 11/02/15 [History] Metoprolol Succinate [Toprol XL] 50 mg PO DAILY 06/10/20 [History] Ascorbic Acid [Vitamin C] 1,000 mg PO DAILY 06/02/24 [History] Follow up Appointment(s)/Referral(s): Diego uNr MD [STAFF PHYSICIAN] - 06/18/24 2:15 pm (Appointment is in Device Clinic located at [facility] Main Office on [address]- Appointment with Dr. Nur to follow) Patient Instructions/Handouts: Moderate Sedation (DC), Pacemaker (DC) Activity/Diet/Wound Care/Special Instructions: Instruction following a heart rhythm device implant. 1. Keep dressing dry for 5 DAYS. You may cover the are with Saran wrap or Cling wrap prior to a shower. 2. The dressing will be removed in the Device Clinic at [facility]. Absorbable sutures were used to close the wound. . 3. Avoid raising the left arm above the shoulder level. 4 week restriction. 4.Avoid arm movements, like back scratching, rubbing the head, or pulling a cord. 4 week restriction. 5. Gentle range of motion movements of the shoulder, closest to the incision should be performed to avoid a frozen shoulder. 6. The opposite arm may be used freely. 7.Avoid driving for 7 days. 8.Avoid activities such as golfing,swimming,weed wacking,lifting more than 10 lbs weight,bowling, gymnastics, and weight lifting/training. (6 week restriction) 9. Activities such as wood chopping with an axe, pull ups in the gymnasium, power lifting, arc-welding, being close to home induction cooktops will always be a problem 10.Arm sling is only a reminder not to raise the arm above the head. You do not need to keep the arm completely immobilized. You are free to move the arm and use it for normal activities. In case of any problems, Please call [facility] [place] @ [phone] Attention: Device Clinic
== END 2024-06-10 14:18 | disposition home or self-care (01) ==
LOC: CATHEP 08:05 → 6NMEDSUR 20:17 → CATHEP 06-10 14:18
PROVIDERS: ATTEND Internal Medicine Clinical Cardiac Electrophysiology
CPT/HCPCS: 33225; 33229; 71046; 80053; 93005

== ENCOUNTER → 2025-03-04 | Outpatient (CLI) | payer MEDICARE ==
[2025-03-04 18:34] LABS: Chol/HDL Ratio 3.21 Ratio
[2025-03-04 18:35] LABS: ALT 28 U/L (10-49); AST 20 U/L (14-35)
== END | disposition home or self-care (01) ==
LOC: LABWHC1 10:28
PROVIDERS: ATTEND Internal Medicine Cardiovascular Disease
DX: E78.2 Mixed hyperlipidemia (principal)
CPT/HCPCS: 36415; 80061; 84450; 84460